=== PATIENT | female | born 1990 | race Caucasian/White ===

== ENCOUNTER 2016-07-08 18:51 | Inpatient (IN) | payer OTHER ==
[~2016-07-08] VITALS: Ht 154.9 cm; Wt 63.5 kg
[2016-07-08 20:41] LABS: HEMOGLOBIN 9.5 gm/dl (12.3-15.3); RED BLOOD COUNT 3.34 M/UL (4.00-5.10); WHITE BLOOD COUNT 15.2 K/UL (4.5-11.0)
[2016-07-08 20:55] LABS: BUN/CREATININE RATIO 14 (0-10)
[2016-07-08] MEDS ORDERED: ZOVIRAX 200 MG200 MG PO (23:16)
[2016-07-08] MEDS ORDERED: NEURONTIN 400400 MG PO (23:16)
[2016-07-08] MEDS ORDERED: INDERAL TAB 4040 MG PO (23:21)
[2016-07-09 04:45] LABS: HEMOGLOBIN 8.9 gm/dl (12.3-15.3); RED BLOOD COUNT 3.13 M/UL (4.00-5.10); WHITE BLOOD COUNT 12.1 K/UL (4.5-11.0)
[2016-07-09 05:00] LABS: BUN/CREATININE RATIO 18 (0-10)
[2016-07-09] MEDS ORDERED: VESTURA 3 MG-01 EACH PO (07:27)
[2016-07-09] MEDS ORDERED: TIZANIDINE HCL4 MG PO (07:28)
[2016-07-10 05:19] LABS: HEMOGLOBIN 9.9 gm/dl (12.3-15.3); WHITE BLOOD COUNT 10.5 K/UL (4.5-11.0)
[2016-07-10 05:23] LABS: RED BLOOD COUNT 3.45 M/UL (4.00-5.10)
[2016-07-10 05:47] LABS: BUN/CREATININE RATIO 23 (0-10)
[2016-07-10] MEDS ORDERED: BACTRIM DS TAB1 EACH PO (13:07)
[2016-07-10] MEDS ORDERED: ULTRAM50 MG PO (13:08)
== END 2016-07-10 14:03 | disposition home or self-care (01) | DRG 580 ==
LOC: ER1 18:51 → MED SURG 4 21:35 → ZEROF 21:35 → MED SURG 4 23:06
PROVIDERS: Emergency Medicine; Orthopaedic Surgery; Physician Assistant Medical; ADMIT Internal Medicine
PROC: 0JBK0ZZ Excision of Left Hand Subcutaneous Tissue and Fascia, Open Approach (ICD-10-PCS; principal; 2016-07-09 15:00)
DX: L03.012 Cellulitis of left finger (principal); L02.414 Cutaneous abscess of left upper limb; B95.62 Methicillin resistant Staphylococcus aureus infection as the cause of diseases classified elsewhere; G43.909 Migraine, unspecified, not intractable, without status migrainosus; G47.00 Insomnia, unspecified
CPT/HCPCS: 36415; 73130; 80053; 80202; 84703; 85025; 85027; 87015; 87040; 87070; 87075; 87077; 87102; 87116; 87186; 87205; 96374; 99284; J1100; J1335; J1885; J2250; J2405; J2765; J3010; J3370; J7050; J7070; J7120